=== PATIENT | female | born 1950 | race Hispanic/Latino ===

== ENCOUNTER 2018-03-07 19:21 | Inpatient (IN) | payer MEDICARE ==
--- NOTE | 2018-03-07 20:34 | C.PDOC ---
History Of Present Illness 68 year old female patient presents to the ER requesting detox for alcohol abuse. Patient was seen at [facility] [place] and was pre-screened for alcohol detox. Patient also received CT image of head, facial bone, and c- spine due to trip and fall with negative results. Time Seen by Provider: 03/07/18 20:00 Chief Complaint (Nursing): Substance Abuse History Per: Patient History/Exam Limitations: no limitations Current Symptoms Are (Timing): Still Present Modifying Factor(s): Alcohol Past Medical History Reviewed: Historical Data, Nursing Documentation, Vital Signs Vital Signs: Last Vital Signs Temp 97.9 F 03/07/18 19:43 Pulse 80 03/07/18 19:43 Resp 16 03/07/18 19:43 BP 150/98 H 03/07/18 19:43 Pulse Ox 97 03/07/18 19:43 - Medical History PMH: HTN, TIA Family History: States: No Known Family Hx - Social History Hx Alcohol Use: Yes Hx Substance Use: No - Immunization History Hx Tetanus Toxoid Vaccination: No Hx Influenza Vaccination: No Hx Pneumococcal Vaccination: No Review Of Systems Except As Marked, All Systems Reviewed And Found Negative. Constitutional: Positive for: Other (detox for alcohol abuse; ecchymosis on chin; hematoma to occiptial scalp. ) Physical Exam - Physical Exam Appears: Non-toxic, No Acute Distress Skin: Normal Color, Warm, Dry Head: Atraumatic, Normacephalic Eye(s): bilateral: Normal Inspection, PERRL, EOMI Nose: Normal Oral Mucosa: Moist Chest: Symmetrical Cardiovascular: Rhythm Regular, No Murmur Respiratory: Normal Breath Sounds, No Rales, No Rhonchi, No Wheezing Gastrointestinal/Abdominal: Normal Exam, Soft, No Tenderness Extremity: Normal ROM (x4) Extremity: Bilateral: Atraumatic, Normal Color And Temperature Neurological/Psych: Oriented x3, Normal Speech ED Course And Treatment - Laboratory Results Result Diagrams: 03/07/18 20:37 03/07/18 20:37 O2 Sat by Pulse Oximetry: 97 (RA) Pulse Ox Interpretation: Normal Medical Decision Making Medical Decision Making: Impression: alcohol detox plans: patient will be admitted for detoxing. Disposition Discussed With : Tiffany Leon Doctor Will See Patient In The: Hospital Counseled Patient/Family Regarding: Studies Performed, Diagnosis - Disposition Disposition: HOSPITALIZED Disposition Time: 21:46 Condition: FAIR Forms: [facility] (Kosovan) - Clinical Impression Clinical Impression: Alcohol abuse, Depression - Scribe Statement The provider has reviewed the documentation as recorded by the Scribe Jenna Hayes Provider Attestation: All medical record entries made by the Scribe were at my direction and personall y dictated by me. I have reviewed the chart and agree that the record accurately reflects my personal performance of the history, physical exam, medical decision making, and the department course for this patient. I have also personally directed, reviewed, and agree with the discharge instructions and disposition.
[2018-03-07 20:43] LABS: BASO % 0.3 % (0.0-2.0); EOS % 0.1 % (0.0-4.0); HEMOGLOBIN 13.9 g/dL (11.0-16.0); LYMPH # 2.4 K/uL (1.0-4.3); MEAN CELL VOLUME 101.5 fL (81.0-99.0); MEAN CORPUSCULAR HEMOGLOBIN 34.8 pg (27.0-31.0); MEAN CORPUSCULAR HGB CONC 34.3 g/dL (33.0-37.0); MEAN PLATELET VOLUME 8.3 fL (7.2-11.7); MONO # 0.7 K/uL (0.0-0.8); MONO % 6.2 % (0.0-10.0); NEUT # 7.8 K/uL (1.8-7.0); NEUT % 71.4 % (50.0-75.0); NRBC % 0.1 % (0.0-2.0); RBC 3.99 Mil/uL (3.80-5.20); RED CELL DISTRIBUTION WIDTH 15.6 % (11.5-14.5); WHITE BLOOD COUNT 10.9 K/uL (4.8-10.8)
[2018-03-07 21:02] LABS: SQUAMOUS EPITHIAL < 1 /hpf (0-5); URINE BACTERIA FEW (<OCC); URINE BILIRUBIN NEGATIVE (NEGATIVE); URINE BLOOD 1+ (NEGATIVE); URINE CLARITY Clear (Clear); URINE COLOR Yellow (YELLOW); URINE GLUCOSE (UA) NORMAL (Normal); URINE LEUKOCYTE ESTERASE TRACE Leu/uL (Negative); URINE PROTEIN 1+ mg/dL (NEGATIVE); URINE UROBILINOGEN NORMAL mg/dL (0.2-1.0)
[2018-03-07] MEDS ORDERED: Tmp-Smz 800 mg-160 mg DS Tab PO STA (21:05)
[2018-03-07 21:07] LABS: ALB/GLOB RATIO 1.4 (1.0-2.1); ALBUMIN 4.3 g/dL (3.5-5.0); ALT/SGPT 69 U/L (9-52); AST/SGOT 107 U/L (14-36); BLOOD UREA NITROGEN 13 mg/dL (7-17); CALCIUM 9.7 mg/dl (8.6-10.4); GFR NON-AFRICAN AMERICAN > 60
[2018-03-07] MEDS ORDERED: Tmp-Smz 800 mg-160 mg DS Tab ONE (21:13)
[2018-03-07] MEDS ORDERED: Potassium & Sodium Phosphate PO STA (21:17)
[2018-03-07 21:18] LABS: BARBITURATES, UR NEGATIVE (NEGATIVE); OPIATES, UR NEGATIVE (NEGATIVE); PHENCYCLIDINE, UR NEGATIVE (NEGATIVE)
[2018-03-07 21:23] LABS: BENZODIAZEPINES, UR POSITIVE (NEGATIVE)
--- NOTE | 2018-03-08 | PCM.BM ---
Treatment Plan Problems - Problems identified on initial assessmt potential for alcohol withdrawal Date Initiated: 03/07/18 Time Initiated: 23:59 Status: Active - Milieu Protocol Maintain good personal hygiene: daily Encourage regular showers, daily Remind patient to perform daily oral care, daily Assist patient to perform ADL's Conduct patient checks and document Observation sheet: Q15 minutes Maintain personal safety: every shift Educate patient to report safety concerns to staff, every shift Monitor environment for contraband/sharps Medication safety: Monitor for expected outcome, potential side effects: every shift, Assess barriers to learning: every shift, Assess readiness for medication education: every shift
--- NOTE | 2018-03-08 | PCM.BM ---
Treatment Plan Problems - Problems identified on initial assessmt potential for alcohol withdrawal Date Initiated: 03/07/18 Time Initiated: 23:59 Status: Active
[2018-03-08] MEDS: Tiotropium 18 mcg Cap For Inhalation INH SCH (08:16)
[2018-03-08] MEDS: Multiple Vitamins Tab PO SCH (09:24)
[2018-03-08] MEDS: Venlafaxine 150 mg ER Cap PO SCH (09:25)
[2018-03-09] MEDS: Tiotropium 18 mcg Cap For Inhalation INH SCH (08:29)
[2018-03-09] MEDS: Multiple Vitamins Tab PO SCH (09:19)
[2018-03-09] MEDS: Venlafaxine 150 mg ER Cap PO SCH (10:40)
--- NOTE | 2018-03-09 22:30 | PCM.PSYCH ---
Initial Psychiatric Evaluation - Initial Psychiatric Evaluation Legal Status: Capacity Chief Complaint (in patient's own words): I NEED TO GET SOBER Patient's Reaction to Hospitalization: I'M GLAD A BED WAS AVAILABLE History of Present Illness and Precipitating Events: PT IS A 68 YEAR OLD DOMICILED RETIRED FEMALE WHO PRESENTED TO [facility] FOR DETOX FROM ALCOHOL. PT STARTED DRINKING IN HER 30'S. PT USUALLY DRINKS 1 PINT OR MORE OF VODKA WHEN SHE BINGES. SHE WILL BINGE FOR SEVERAL MONTHS AND THEN NOT DRINK FOR SEVERAL MONTHS. PT HAS HAD 3 PREVIOUS DETOXES AND SEVERAL REHABS. PT HAS HAD 2 DWIS ONE OF THEM VERY RECENTLY. PT DENIES ANY HISTORY. 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 PT HAS HAD ONE PSYCHIATRIC ADMISSION AT REVIEW. PT SAW A THERAPIST BUT SHE GOT ANNOYED WITH HER AND STOPPED TAKING ANY PSYCHIATRIC MEDS. PT'S FATHER WAS AN ALCOHOLIC. PT HAS HTN DM AND COPD AND OCULAR MIGRAINES THAT SOME TIMES RESULT IN A SEIZURE. PT IS CURRENTLY ON ZOLOFT, EFFEXOR AND TOPAMAX. SHE IS DIAGNOSED HAVING BIPOLAR DEPRESSION Current Medications: Active Medications Generic Name Dose Route Start Last Admin Trade Name Freq PRN Reason Stop Dose Admin Clonidine HCl 0.1 mg 03/07/18 23:23 Catapres PO Q4H PRN Symptoms of alcohol withdrawl Clopidogrel Bisulfate 75 mg 03/08/18 10:00 03/09/18 10:40 Plavix PO 75 mg DAILY SHAHZAD Administration Famotidine 20 mg 03/08/18 10:00 03/09/18 17:01 Pepcid PO 20 mg BID SHAHZAD Administration Folic Acid 1 mg 03/08/18 10:00 03/09/18 09:20 Folic Acid PO 1 mg DAILY SHAHZAD Administration Hydralazine HCl 25 mg 03/08/18 10:00 03/09/18 17:01 Apresoline PO 25 mg BID SHAHZAD Administration Influenza Virus Vaccine 60 mcg 03/10/18 10:30 Fluzone Quad 5909-1109 IM 03/10/18 10:31 .ONCE ONE Lorazepam 1 mg 03/07/18 23:23 03/08/18 06:52 Ativan PO 1 mg Q4H PRN Administration Symptoms of alcohol withdrawl Lorazepam 1 mg 03/08/18 15:00 03/09/18 21:40 Ativan PO 1 mg Q6H SHAHZAD Administration Losartan Potassium 50 mg 03/08/18 10:00 03/09/18 10:40 Cozaar PO 50 mg DAILY SHAHZAD Administration Metformin HCl 1,000 mg 03/08/18 10:00 03/09/18 17:01 Glucophage PO 1,000 mg BID SHAHZAD Administration Metoprolol Tartrate 12.5 mg 03/08/18 10:00 03/09/18 17:02 Lopressor PO 12.5 mg BID SHAHZAD Administration Multivitamins 1 tab 03/08/18 10:00 03/09/18 09:19 Hexavitamin PO 1 tab DAILY SHAHZAD Administration Nicotine 1 patch 03/08/18 12:00 03/09/18 09:19 Nicoderm Cq TD 1 patch DAILY SHAHZAD Administration Rosuvastatin Calcium 20 mg 03/08/18 22:00 03/09/18 21:40 Crestor PO 20 mg HS SHAHZAD Administration Sertraline HCl 50 mg 03/08/18 10:00 03/09/18 09:20 Zoloft PO 50 mg DAILY SHAHZAD Administration Thiamine HCl 100 mg 03/08/18 10:00 03/09/18 09:19 Vitamin B1 Tab PO 100 mg DAILY SHAHZAD Administration Tiotropium [place] 18 mcg 03/08/18 08:00 03/09/18 08:29 Spiriva INH 18 mcg RQ24 SHAHZAD Administration Topiramate 50 mg 03/08/18 10:00 03/09/18 18:30 Topamax PO 50 mg BID SHAHZAD Administration Trazodone HCl 50 mg 03/07/18 23:23 Desyrel PO HS PRN Insomnia Venlafaxine HCl 150 mg 03/08/18 10:00 03/09/18 10:40 Effexor Xr PO 150 mg DAILY SHAHZAD Administration Past Psychiatric History - Past Psychiatric History Prior Professional Help: SEE HPI Pertinent Medical Hx (Current Medical&Sleep Prob, Allergies): Allergies Allergy/AdvReac Type Severity Reaction Status Date / Time Penicillins Allergy Verified 03/07/18 19:48 Atorvastatin [Lipitor] 40 mg PO DAILY 03/07/18 Clopidogrel [Plavix] 75 mg PO DAILY 03/07/18 Famotidine [Pepcid] 20 mg PO BID 03/07/18 Ibuprofen [Advil Liqui-Gels] 200 mg PO Q4 PRN 03/07/18 Losartan Potassium 50 mg PO DAILY 03/07/18 MetFORMIN [glucOPHAGE] 1,000 mg PO BID 03/07/18 Metoprolol Succinate 12.5 mg PO BID 03/07/18 Metoprolol Tartrate [Lopressor] 12.5 mg PO BID 03/07/18 QUEtiapine [SEROquel] 25 mg PO HS 03/07/18 Sertraline [Zoloft] 50 mg PO DAILY 03/07/18 Tiotropium [place] Inhaler [Spiriva Inhalation Handihaler Device] 1 inhaler INH DAILY 03/07/18 Tiotropium [Spiriva] 18 mcg IH DAILY 03/07/18 Topiramate [Trokendi Xr] 50 mg PO BID 03/07/18 Venlafaxine HCl [Venlafaxine HCl ER] 150 mg PO DAILY 03/07/18 hydrALAZINE [hydralazine Hydrochloride] 25 mg PO BID 03/07/18 traMADol [Ultram] 50 mg PO BID PRN 03/07/18 Review of Systems - Constitutional Constitutional: Malaise - EENT Eyes: UNREMARKABLE Ears: UNREMARKABLE Nose/Mouth/Throat: UNREMARKABLE - Breasts Breasts: UNREMARKABLE - Cardiovascular Cardiovascular: UNREMARKABLE - Respiratory Respiratory: UNREMARKABLE - Gastrointestinal Gastrointestinal: UNREMARKABLE - Genitourinary Genitourinary: UNREMARKABLE - Reproductive: Female Reproductive:Female: UNREMARKABLE - Menstruation Menstruation: UNREMARKABLE - Musculoskeletal Musculoskeletal: Arthralgias, Myalgias - Integumentary Integumentary: Unusual Bruising - Neurological Neurological: UNREMARKABLE - Psychiatric Psychiatric: Anxiety - Endocrine Endocrine: UNREMARKABLE - Hematologic/Lymphatic Hematologic: Easy Bleeding Mental Status Examination - Personal Presentation Personal Presentation: Looks older than stated age, Looks younger than stated age - Affect Affect: Constricted - Motor Activity Motor Activity: Calm - Reliability in Providing Information Reliability in Providing Information: Good - Speech Speech: Organized - Mood Mood: Anxious - Formal Thought Process Formal Thought Process: No Impairment - Obsessions/Compulsions Obsessions: None Compulsions: None - Cognitive Functions Orientation: Person, Place, Situation, Time Sensorium: Alert Attention/Concentration: Attentive Abstract Thinking: As evidence by abstract perception of proverbs Estimate of Intelligence: Above Average Judgement: Intact, as evidence by: Good judgement Memory: Recent intact, as evidence by: Ability to recall events of the day, Remote intact, as evidenced by: Ability to recall historical events - Risk Risk: Seizure, Withdrawal - Strength & Assets Inventory Strength & Assets Inventory: Family support, Education, Employment history, Life experience, Cooperative - Limitations Limitations: Other DSM 5 DX - DSM 5 DSM 5 Diagnosis: ALCOHOL WITHDRAWAL ATIVAN TAPER CT CBT SUPPORTIVE PSYCHOTHERAPY ALCOHOL USE DISORDER SEVERE CT CBT MILIEU, GROUP, AND RECREATIONAL GROUPS, SUPPORTIVE PSYCHOTHERAPY HTN, T2DM HYPERLIPIDEMIA HX DVT MEDS ORDERED - Recommended/Plan of Treatment Treatment Recommendations and Plan of Treatment: SEE ABOVE Projected ELOS: 5 DAYS Prognosis: GOOD WITH TREATMENT Discharge Plan and Discharge Criteria: NO ACUTE WITHDRAWAL SXS - Smoking Cessation Smoking Cessation Initiated: No
--- NOTE | 2018-03-09 22:44 | PCM.PYCHPN ---
Psychiatric Progress Note - Psychiatric Progress Note Patient seen today, length of contact: 15 MIN Patient Chief Complaint: I NEED TO KNOW WHY I BINGE Problems Identified/Issues Discussed: PT SEEN AND EXAMINED D/W TEAM D/W PT POSSIBLE REASONS FOR DRINKING Medical Problems: NOTHING ACUTE Diagnostic Results: REVIEWED DSM 5 Symptoms Update: DIFFICULTY SLEEPING AND VIVID DREAMS Medication Change: Yes (ATIVAN TAPER) Medical Record Reviewed: Yes Mental Status Examination - Cognitive Function Orientation: Place, Time Memory: Intact Attention: WNL Association: WNL - Mood Mood: Anxious - Affect Affect: Constricted - Speech Speech: Appropriate - Formal Thought Process Formal Thought Process: No Impairment - Suicidal Ideation Suicidal Ideation: No - Homicidal Ideation Homicidal Ideation: No Goal/Treatment Plan - Goal/Treatment Plan Need for Continued Stay: Discharge may exacerbated symptoms Progress Toward Problem(s) and Goals/Treatment Plan: ALCOHOL WITHDRAWAL: ATIVAN TAPER ALCOHOL USEC DISORDER: CBT RI SUPPORTIVE PSYCHOTHERAPY PSYCHOEDUCATION PHYSICAL ILLNESSES MEDS ORDERED Estimated Date of D/C: 03/11/18 - Smoking Cessation Smoking Cessation Initiated: No
[2018-03-10] MEDS: Tiotropium 18 mcg Cap For Inhalation INH SCH (08:27)
[2018-03-10] MEDS: Multiple Vitamins Tab PO SCH (10:02)
[2018-03-10] MEDS: Venlafaxine 150 mg ER Cap PO SCH (10:02)
[2018-03-10] MEDS ORDERED: Influenza Vaccine 60 MCG/0.5 ML SYR (3 yr & up) IM ONE (10:30)
--- NOTE | 2018-03-10 13:18 | PCM.PYCHPN ---
Psychiatric Progress Note - Psychiatric Progress Note Patient seen today, length of contact: 15 MIN Patient Chief Complaint: "not good" Problems Identified/Issues Discussed: The pt is seen, chart reviewed, case discussed with staff. The pt is compliant with medications and reports no side-effects. Symptoms are improving but needs more time to stabilize. Pt attends groups and activities. Support given, psycho-education provided. After care discussed. Medication Change: Yes (ATIVAN TAPER) Medical Record Reviewed: Yes Mental Status Examination - Cognitive Function Orientation: Person, Place, Time Memory: Intact Attention: WNL Concentration: WNL Association: WNL Fund of Knowledge: WNL - Mood Mood: Anxious - Affect Affect: Constricted - Speech Speech: Appropriate - Formal Thought Process Formal Thought Process: No Impairment - Suicidal Ideation Suicidal Ideation: No - Homicidal Ideation Homicidal Ideation: No Goal/Treatment Plan - Goal/Treatment Plan Need for Continued Stay: Discharge may exacerbated symptoms, Severe functional impairment Progress Toward Problem(s) and Goals/Treatment Plan: Continue medications Support and psychoeducation daily Attend groups and activities daily After care planning by CAMELIA Estimated Date of D/C: 03/11/18
[2018-03-11] MEDS: Tiotropium 18 mcg Cap For Inhalation INH SCH (08:32)
[2018-03-11] MEDS: Venlafaxine 150 mg ER Cap PO SCH (09:45)
[2018-03-11] MEDS: Multiple Vitamins Tab PO SCH (09:45)
[2018-03-11 13:56] VITALS: RESP 18
[2018-03-12] MEDS: Tiotropium 18 mcg Cap For Inhalation INH SCH (07:58)
--- NOTE | 2018-03-12 08:17 | PCM.PYCHDC ---
Mental Status Examination - Mental Status Examination Orientation: Person Discharge Summary - Discharge Note Consultations:: List each consultation separately and include: 1. Reason for request. 2. Findings. 3. Follow-up Summary of Hospital Course include:: 1. Description of specific treatment plan utilized for patients during their course of treatmen. 2. Summarize the time- course for resolution of acute symptoms and/or regressed behaviors. 3. Describe issues identified and worked on during hospitalization. 4. Describe medication utilized. 5. Describe medical problems identified and treated. 6. Reassessment of suicide risk Summary of Hospital Course: [facility] in [place] - Final Diagnosis (DSM 5) Condition upon Discharge: FAIR Disposition: HOME/ ROUTINE Follow-up Treatment Plan: Continue medications Support and psychoeducation daily Attend groups and activities daily After care planning by CAMELIA Prescriptions/Medication Reconciliation: Atorvastatin [Lipitor] 40 mg PO DAILY #30 tab Clopidogrel [Plavix] 75 mg PO DAILY #30 tab Famotidine [Pepcid] 20 mg PO BID #60 tab hydrALAZINE [Apresoline] 25 mg PO BID #60 tab Losartan [Cozaar] 50 mg PO DAILY #30 tab metFORMIN [glucOPHAGE] 1,000 mg PO BID #60 tab Metoprolol Tartrate [Lopressor] 12.5 mg PO BID #60 tab Nitrofurantoin Macrocrystals [Macrobid] 100 mg PO Q12H #12 cap Tiotropium [Spiriva] 18 mcg INH RQ24 #1 cap Topiramate [Topamax] 50 mg PO BID #60 tab traZODone [Desyrel] 50 mg PO HS PRN #30 tab PRN Reason: Insomnia Venlafaxine [Effexor XR] 150 mg PO DAILY #30 cer
[2018-03-12] MEDS: Multiple Vitamins Tab PO SCH (09:23)
[2018-03-12] MEDS: Venlafaxine 150 mg ER Cap PO SCH (09:24)
[2018-03-12 10:20] VITALS: BP 127/83; PULSE 97; TEMP 97.7; O2SAT 97
== END 2018-03-12 09:50 | disposition home or self-care (01) | DRG 895 ==
LOC: C.ER 19:21 → C.7D 21:45
PROVIDERS: ADMIT Psychiatry & Neurology Psychiatry; ATTEND Psychiatry & Neurology Psychiatry
PROC: HZ2ZZZZ Detoxification Services for Substance Abuse Treatment (ICD-10-PCS; principal; 2018-03-07)
PROC: HZ52ZZZ Individual Psychotherapy for Substance Abuse Treatment, Cognitive-Behavioral (ICD-10-PCS; 2018-03-07)
PROC: HZ59ZZZ Individual Psychotherapy for Substance Abuse Treatment, Supportive (ICD-10-PCS; 2018-03-07)
PROC: HZ56ZZZ Individual Psychotherapy for Substance Abuse Treatment, Psychoeducation (ICD-10-PCS; 2018-03-07)
PROC: HZ42ZZZ Group Counseling for Substance Abuse Treatment, Cognitive-Behavioral (ICD-10-PCS; 2018-03-07)
PROC: HZ46ZZZ Group Counseling for Substance Abuse Treatment, Psychoeducation (ICD-10-PCS; 2018-03-07)
PROC: GZHZZZZ Group Psychotherapy (ICD-10-PCS; 2018-03-07)
PROC: GZ58ZZZ Individual Psychotherapy, Cognitive-Behavioral (ICD-10-PCS; 2018-03-07)
PROC: GZ56ZZZ Individual Psychotherapy, Supportive (ICD-10-PCS; 2018-03-07)
DX: F10.230 Alcohol dependence with withdrawal, uncomplicated (principal); F31.30 Bipolar disorder, current episode depressed, mild or moderate severity, unspecified; E11.9 Type 2 diabetes mellitus without complications; E78.5 Hyperlipidemia, unspecified; Y90.0 Blood alcohol level of less than 20 mg/100 ml; G43.809 Other migraine, not intractable, without status migrainosus; J44.9 Chronic obstructive pulmonary disease, unspecified; R56.9 Unspecified convulsions; G47.00 Insomnia, unspecified; I10 Essential (primary) hypertension; Z86.73 Personal history of transient ischemic attack (TIA), and cerebral infarction without residual deficits; Z88.0 Allergy status to penicillin; Z86.718 Personal history of other venous thrombosis and embolism